=== PATIENT | female | born 1950 | race Caucasian/White ===

== ENCOUNTER 2021-08-08 09:20 | Outpatient (CLI) | payer MEDICARE | END 2021-08-08 09:21 | disposition home or self-care (01) | LOC: CSHMAMMO 09:20 | PROVIDERS: ATTEND Family Medicine | DX: Z13.820 Encounter for screening for osteoporosis (principal); M54.2 Cervicalgia; N95.1 Menopausal and female climacteric states; M85.852 Other specified disorders of bone density and structure, left thigh | CPT/HCPCS: 70496; 77080; 82565 ==